=== PATIENT | female | born 1990 | race Two or more races ===

== ENCOUNTER 2020-10-05 15:03 | Outpatient (CLI) | payer MEDICAID ==
[~2020-10-05 15:03] MED LIST: NAPR-56 PO; PHEN-786 PO; TRAM50TA2 PO
== END 2020-10-05 23:59 | disposition home or self-care (01) ==
LOC: RAD 15:03
PROVIDERS: ATTEND Nurse Practitioner Acute Care
DX: R10.11 Right upper quadrant pain (principal)
CPT/HCPCS: 76700

== ENCOUNTER 2021-08-16 15:18 | Emergency (ER) | payer MEDICAID ==
[~2021-08-16] VITALS: Ht 165.1 cm; Wt 56.8 kg
[2021-08-16] MEDS ORDERED: morphine 4 MG/ML inj SYRINge IV PRN (15:55)
[2021-08-16 16:24] LABS: BASOPHILS % (AUTO) 0.8 % (0-1); EOSINOPHILS % (AUTO) 0.4 % (0-6); HEMATOCRIT 36.1 % (35.0-45.0); HEMOGLOBIN 12.9 g/dl (12.0-16.0); LYMPHOCYTES # (AUTO) 1.8 X10'3 (1.1-4.8); LYMPHOCYTES % (AUTO) 29.3 % (21-51); MEAN CORPUSCULAR HEMOGLOBIN 30.6 PG (27.0-31.0); MEAN CORPUSCULAR HGB CONC 35.6 g/dL (33.0-36.5); MEAN PLATELET VOLUME 6.7 FL (7.4-10.4); MONOCYTES # (AUTO) 0.4 X10'3 (0-0.9); MONOCYTES % (AUTO) 6.4 % (2-12); NEUTROPHILS # (AUTO) 3.8 X10'3 (1.8-7.7); NEUTROPHILS % (AUTO) 63.1 % (42-75); PLATELET COUNT 358 X10'3 (140-440); RED CELL DISTRIBUTION WIDTH 13.1 % (11.5-14.5)
[2021-08-16 16:41] LABS: ALANINE AMINOTRANSFERASE 18 U/L (12-78); ALBUMIN 4.9 G/DL (3.4-5.0); ALBUMIN/GLOBULIN RATIO 1.2 (1.1-1.5); ALKALINE PHOSPHATASE 62 IU/L (46-116); ANION GAP 12 (8-16); ASPARTATE AMINO TRANSFERASE 16 U/L (10-37); BILIRUBIN,TOTAL 0.8 MG/DL (0.1-1.0); BLOOD UREA NITROGEN 10 MG/DL (7-18); BUN/CREATININE RATIO 12.8 (6.6-38.0); CALCIUM 9.7 MG/DL (8.5-10.1); CHLORIDE 102 MMOL/L (99-107); CREATININE 0.78 MG/DL (0.40-0.90); GLUCOSE 101 MG/DL (70-104); LIPASE 90 U/L (73-393); POTASSIUM 3.4 MMOL/L (3.5-5.1); SODIUM 140 MMOL/L (135-145); TOTAL CARBON DIOXIDE 26.3 MMOL/L (24-32); TOTAL PROTEIN 9.1 G/DL (6.4-8.2); eGFR 87 ML/MIN
[2021-08-16 18:37] VITALS: BP 141/89
[2021-08-16] MEDS ORDERED: mag hydrox/Alum hydrox/simeth 30ml oral suspension PO ONE (18:50)
[2021-08-16] MEDS ORDERED: pantoprazole 40MG/NS 100ML BAG 100 ML IV ONE (18:50)
[2021-08-16] MEDS ORDERED: LIDOcaine Viscous 15ml cup MM ONE (18:50)
[2021-08-16] MEDS ORDERED: normal saline 1000ML IV soln IVB ONE (18:50)
[2021-08-16 18:57] LABS: CLARITY,URINE CLEAR (Clear); COLOR,URINE YELLOW (Yellow); GLUCOSE, URINE NEGATIVE (Neg); KETONES,URINE NEGATIVE (Neg); LEUKOCYTE ESTERASE ,URINE NEGATIVE (Neg); NITRITES, URINE NEGATIVE (Neg); OCCULT BLOOD,URINE NEGATIVE (Neg); PROTEIN,URINE NEGATIVE (Neg); UROBILINOGEN,URINE 0.2 E.U/dL (0.2-1.0)
[2021-08-16 18:58] LABS: URINE HCG NEGATIVE (NEG)
[2021-08-16 19:13] LABS: UA COLLECTION TYPE CLN CATCH MIDSTREAM
[2021-08-16] MEDS ORDERED: iohexol 300mg/ml 100ml inj. ONE (19:14)
[2021-08-16] MEDS ORDERED: proCHLORperazine 10 MG/2 ml inj IV ONE (19:55)
[2021-08-16] MEDS ORDERED: ONDA4TAB6 PO (21:04)
== END 2021-08-16 21:17 | disposition home or self-care (01) ==
LOC: ER 15:19
DX: K20.90 Esophagitis, unspecified without bleeding (principal); R10.13 Epigastric pain; R11.10 Vomiting, unspecified; J45.909 Unspecified asthma, uncomplicated; F12.90 Cannabis use, unspecified, uncomplicated; Z79.899 Other long term (current) drug therapy
CPT/HCPCS: 36415; 74177; 80053; 81003; 81025; 83690; 85025; 96374; 96375; 99285; C9113; J0780; J2270; J7030; Q9967

== ENCOUNTER 2024-10-29 12:58 | Emergency (ER) | payer MEDICAID, OTHER ==
[~2024-10-29] VITALS: Ht 165.1 cm; Wt 59.1 kg
[~2024-10-29 12:58] MED LIST changes: +ONDA4TAB6 PO
[2024-10-29 13:04] VITALS: BP 163/94; PULSE 109; RESP 16; O2SAT 100
[2024-10-29 14:53] VITALS: TEMP 98.1
== END 2024-10-29 14:55 | disposition home or self-care (01) ==
LOC: ER 12:59
DX: S10.93XA Contusion of unspecified part of neck, initial encounter (principal); G43.909 Migraine, unspecified, not intractable, without status migrainosus; J45.909 Unspecified asthma, uncomplicated; F12.90 Cannabis use, unspecified, uncomplicated; Z79.899 Other long term (current) drug therapy; W18.39XA Other fall on same level, initial encounter; Y93.89 Activity, other specified; Y92.89 Other specified places as the place of occurrence of the external cause; Y99.0 Civilian activity done for income or pay
CPT/HCPCS: 99281

== ENCOUNTER 2025-02-10 09:11 | Emergency (ER) | payer MEDICAID, OTHER ==
[~2025-02-10] VITALS: Ht 152.4 cm; Wt 58.9 kg
[2025-02-10 10:29] LABS: BASOPHILS % (AUTO) 0.6 % (0-1); EOSINOPHILS # (AUTO) 0.1 X10'3 (0-0.9); EOSINOPHILS % (AUTO) 1.3 % (0-6); HEMATOCRIT 36.9 % (35.0-45.0); HEMOGLOBIN 12.6 g/dl (12.0-16.0); LYMPHOCYTES # (AUTO) 1.4 X10'3 (1.1-4.8); MEAN CORPUSCULAR HEMOGLOBIN 28.9 PG (27.0-31.0); MEAN CORPUSCULAR HGB CONC 34.2 g/dL (33.0-36.5); MEAN CORPUSCULAR VOLUME 84.6 FL (78-98); MEAN PLATELET VOLUME 6.8 FL (7.4-10.4); MONOCYTES # (AUTO) 0.3 X10'3 (0-0.9); MONOCYTES % (AUTO) 6.2 % (2-12); NEUTROPHILS # (AUTO) 2.5 X10'3 (1.8-7.7); NEUTROPHILS % (AUTO) 58.9 % (42-75); PLATELET COUNT 311 X10'3 (140-440); RED BLOOD COUNT 4.36 X10'6 (4.20-5.60); RED CELL DISTRIBUTION WIDTH 13.7 % (11.5-14.5); WHITE BLOOD COUNT 4.2 X10'3 (4.5-11.0)
[2025-02-10 10:52] LABS: ALANINE AMINOTRANSFERASE 13 U/L (12-78); ALBUMIN 4.3 G/DL (3.4-5.0); ALKALINE PHOSPHATASE 67 IU/L (46-116); ANION GAP 10 (8-16); ASPARTATE AMINO TRANSFERASE 16 U/L (10-37); BILIRUBIN,TOTAL 0.5 MG/DL (0.1-1.0); BLOOD UREA NITROGEN 8 MG/DL (7-18); BUN/CREATININE RATIO 11.4 (10.0-20.0); CALCIUM 9.2 MG/DL (8.5-10.1); CHLORIDE 105 MMOL/L (99-107); GLUCOSE 89 MG/DL (70-104); LIPASE 24 U/L (16-77); POTASSIUM 3.8 MMOL/L (3.5-5.1); SODIUM 141 MMOL/L (135-145); TOTAL CARBON DIOXIDE 26.4 MMOL/L (24-32); TOTAL PROTEIN 8.4 G/DL (6.4-8.2); eCRCL 81 ML/MIN; eGFR > 90 ML/MIN
[2025-02-10 11:36] LABS: BILIRUBIN,URINE NEGATIVE (Neg); CLARITY,URINE CLEAR (Clear); COLOR,URINE STRAW (Yellow); GLUCOSE, URINE NEGATIVE (Neg); KETONES,URINE TRACE mg/dl (Neg); LEUKOCYTE ESTERASE ,URINE NEGATIVE (Neg); NITRITES, URINE NEGATIVE (Neg); OCCULT BLOOD,URINE SMALL (Neg); PROTEIN,URINE NEGATIVE (Neg); UROBILINOGEN,URINE 0.2 E.U/dL (0.2-1.0)
[2025-02-10 11:37] LABS: URINE HCG NEGATIVE (NEG)
[2025-02-10 11:41] LABS: UA COLLECTION TYPE CLN CATCH MIDSTREAM
[2025-02-10 11:45] LABS: BACTERIA,URINE NONE SEEN /HPF (Neg); SQUAMOUS EPITHELIAL CELL,UR FEW /LPF (FEW); WBC,URINE 0-4 /HPF (0-4)
--- NOTE | 2025-02-10 12:12 | Physician Documentation ---
History of Present Illness Chief Complaint: Abdominal Pain Stated Complaint: DIFF SWALLOWING/ABD PAIN Time Seen by MD: 11:35 Primary Medical Doctor: Gabriela VASQUEZ Patient is seen today with complaints of epigastric abdominal discomfort along with dysphagia. Patient states she has a long history of dysphagia stating that she wants was almost 200 lb and struggles with dysphagia so bad that she made it down to just over 100 lb. Patient states she is now about 130 lb and states that she was doing a lot better with her dysphagia after having had some kind of GI cocktail in the ER almost a year ago. Patient's states she is now around 130 lb in his very concerned and definitely does not want to lose any more weight. Patient states she has not yet seen a GI specialist or had an upper endoscopy or swallowing study performed. She has no other concern or complaint at this time. She denies any chest pain or shortness of breath or nausea, vomiting, diarrhea. Medication Reconciliation Allergies: Coded Allergies: No Known Allergies (Unverified , 10/29/24) Scheduled Naproxen (Naproxen), 1 TAB PO Q12H, (Reported) Ondansetron Hcl (Zofran), 1 TAB PO Q6H Phenazopyridine Hcl (Pyridium tablet), 2 TAB PO TID Tramadol HCl (Tramadol HCl), 1 TABLET PO Q6H, (Reported) Past Medical History Past Medical History: Asthma Past Surgical History: noncontributory Drug Use: marijuana Lives In: Home Review of Systems Constitutional: Denies: chills, fever, weakness Eyes: Denies: pain, blurred vision ENT: Denies: ear pain, nose pain, throat pain, mouth pain Respiratory: Denies: cough, shortness of breath Cardiovascular: Denies: chest pain, palpitations Gastrointestinal: Denies: abdominal pain, nausea, vomiting Genitourinary: Denies: burning, dysuria Female Genitalia: Denies: vaginal discharge, pelvic pain Neurological: Denies: headache, dizziness Musculoskeletal: Denies: pain, swelling Integumentary: Denies: rash, lesions Allergic/Immunologic: Denies: hives, itching Hematologic/Lymphatic: Denies: no symptoms reported Psychiatric: Denies: depression, anxiety Physical Exam Vital Signs: Temperature: 98.2, Source: Oral, Heart Rate: 97, Respiratory Rate: 16, BP: 162/101, Pulse Oximetry: 100, Weight: 58.900 Oxygen Flow Rate: 0 Physical Exam General: Awake and Alert, no acute distress. HEENT: Conjunctiva pink, Sclera clear, Mucus Membranes moist. Neck: Supple without masses and tenderness. Resp: Unlabored. Lungs clear to auscultation bilaterally. Heart: Regular Rate and rhythm, normal S1 and S2 without murmur, rub or gallop. Abdomen: On examination, patient's abdomen is soft, nondistended, no guarding, normoactive bowel sounds, mild tenderness to palpation in the epigastric area, no masses. Extremities: No cyanosis,clubbing or edema. Skin: Warm and Dry. Progress Results/Orders Results/Orders Vital Signs 02/10/25 09:21 Temp 98.2 Pulse 97 Resp 16 B/P (MAP) 162/101 Pulse Ox 100 O2 Flow Rate 0 Laboratory Tests Test 02/10/25 10:11 02/10/25 11:10 White Blood Count 4.2 L Red Blood Count 4.36 Hemoglobin 12.6 Hematocrit 36.9 Mean Corpuscular Volume 84.6 Mean Corpuscular Hemoglobin 28.9 Mean Corpuscular Hemoglobin Concent 34.2 Red Cell Distribution Width 13.7 Platelet Count 311 Mean Platelet Volume 6.8 L Neutrophils (%) (Auto) 58.9 Lymphocytes (%) (Auto) 33.0 Monocytes (%) (Auto) 6.2 Eosinophils (%) (Auto) 1.3 Basophils (%) (Auto) 0.6 Neutrophils # (Auto) 2.5 Lymphocytes # (Auto) 1.4 Monocytes # (Auto) 0.3 Eosinophils # (Auto) 0.1 Basophils # (Auto) 0.0 CBC Comment Sodium Level 141 Potassium Level 3.8 Chloride Level 105 Carbon Dioxide Level 26.4 Anion Gap 10 Blood Urea Nitrogen 8 Creatinine 0.70 Estimated GFR/1.73 m2 > 90 BUN/Creatinine Ratio 11.4 Glucose Level 89 Calcium Level 9.2 Total Bilirubin 0.5 Aspartate Amino Transf (AST/SGOT) 16 Alanine Aminotransferase (ALT/SGPT) 13 Alkaline Phosphatase 67 Total Protein 8.4 H Albumin 4.3 Globulin 4.1 Albumin/Globulin Ratio 1.0 L Lipase 24 Chemistry Comments Urine Specimen Description Cln catch midstream Urine Color Straw Urine Clarity Clear Urine pH 7.0 Urine Specific [place] <=1.005 Urine Protein Negative Urine Glucose (UA) Negative Urine Ketones Trace H Urine Occult Blood Small Urine Nitrite Negative Urine Bilirubin Negative Urine Urobilinogen 0.2 Urine Leukocyte Esterase Negative Urine RBC 3-10 Urine WBC 0-4 Urine Squamous Epithelial Cells Few Urine Bacteria None seen Urine Culture Indicated Not ind Volume Urine Centrifuged 10 ml Urine HCG, Qualitative Negative Urine Comment Medical Decision Making Findings Patient is seen today with complaints of epigastric abdominal discomfort along with dysphagia. Patient states she has a long history of dysphagia stating that she wants was almost 200 lb and struggles with dysphagia so bad that she made it down to just over 100 lb. Patient states she is now about 130 lb and states that she was doing a lot better with her dysphagia after having had some kind of GI cocktail in the ER almost a year ago. Patient's states she is now around 130 lb in his very concerned and definitely does not want to lose any more weight. Patient states she has not yet seen a GI specialist or had an upper endoscopy or swallowing study performed. She has no other concern or complaint at this time. She denies any chest pain or shortness of breath or nausea, vomiting, diarrhea. Patient was given GI cocktail in the ED today. Patient given prescription sent to patient's pharmacy of pantoprazole 40 mg by mouth once a day. Shared decision-making utilized today. Patient will follow up or get referral to GI specialist for swallowing study and upper endoscopy as soon as possible. Patient will return to ED with any worsening, concerning or changing symptoms. Departure Disposition: HOME / SELF CARE / HOMELESS Impression: Primary Impression: Abdominal pain Qualified Codes: R10.13 - Epigastric pain Additional Impression: Dysphagia Qualified Codes: R13.10 - Dysphagia, unspecified Condition: Improved Discharge Instructions: Abdominal Pain (Nonspecific) Additional Instructions: Patient was given GI cocktail in the ED today. Patient given prescription sent to patient's pharmacy of pantoprazole 40 mg by mouth once a day. Shared decision-making utilized today. Patient will follow up or get referral to GI specialist for swallowing study and upper endoscopy as soon as possible. P atient will return to ED with any worsening, concerning or changing symptoms. Referrals: NO PRIMARY CARE PROVIDER (PCP) Prescriptions Simethicone (Simethicone) 80 Mg Tab 1 TAB PO Q8H for gas for 6 Days, #20 TAB Prov: ALFIE BURNS PAC 02/10/25 Pantoprazole Sodium (PROTONIX tablet) 40 Mg Tablet.dr 1 TAB PO DAILY for 30 Days, #30 TAB 0 Refills Prov: ALFIE BURNS PAC 02/10/25 Signature Scribe Signature: No scrib no scribe Attestation: No scribe ALFIE BURNS PAC February 10, 2025 12:12
[2025-02-10] MEDS: pantoprazole 40mg Tablet.DR PO STA (13:04)
[2025-02-10] MEDS: LIDOcaine 2% Viscous 15ml cup MM STA (13:04)
[2025-02-10] MEDS: mag hydrox/Alum hydrox/simeth 30ml oral suspension PO STA (13:05)
[2025-02-10 13:06] VITALS: BP 115/61; PULSE 57; RESP 16; TEMP 98; O2SAT 96
[2025-02-10] MEDS ORDERED: PANT-47 PO (13:14)
[2025-02-10] MEDS ORDERED: SIME80TA15 PO (13:15)
== END 2025-02-10 13:25 | disposition home or self-care (01) ==
LOC: ER 09:12
DX: R10.13 Epigastric pain (principal); R13.10 Dysphagia, unspecified; F12.90 Cannabis use, unspecified, uncomplicated; J45.909 Unspecified asthma, uncomplicated; Z79.899 Other long term (current) drug therapy
CPT/HCPCS: 36415; 80053; 81001; 81025; 83690; 85025; 99284